=== PATIENT | male | born 1945 ===

== ENCOUNTER 2019-04-29 07:09 | Day surgery (SDC) | payer OTHER ==
[~2019-04-29 07:09] MED LIST: ASPIR 8181 MG PO; CARDURA8 MG PO; CARVEDILOL ER80 MG PO; COZAAR100 MG PO; FORTAMET500 MG PO; TAMS0.4C PO
== END 2019-04-29 17:20 | disposition home or self-care (01) ==
LOC: CIR.AMB 07:09
DX: K62.0 Anal polyp (principal); K64.8 Other hemorrhoids; K64.4 Residual hemorrhoidal skin tags

== ENCOUNTER 2020-09-30 08:47 | Day surgery (SDC) | payer OTHER | END 2020-09-30 14:30 | disposition home or self-care (01) | LOC: AMB-ENDOS 08:47 → EDBD 15:15 | PROVIDERS: ATTEND Colon & Rectal Surgery | DX: D12.0 Benign neoplasm of cecum (principal); D12.2 Benign neoplasm of ascending colon; D12.4 Benign neoplasm of descending colon; Z20.822 Contact with and (suspected) exposure to COVID-19 ==